=== PATIENT | female | born 2000 | race Caucasian/White ===

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

== ENCOUNTER 2020-12-06 08:00 | Inpatient (IN) ==
[2020-12-09] MEDS ORDERED: CeFAZolin 2,000 MG/120 ML BAG IVPB ONE (09:54)
[2020-12-09] MEDS ORDERED: Metoclopramide 10 MG/2 ML VIAL IVP ONE (09:54)
[2020-12-09] MEDS ORDERED: Oxytocin 20 units/ LR 1000 mL 20 UNIT/1,000 ML BAG IVC ONE (09:54)
[2020-12-09] MEDS ORDERED: Ringers Solution, Lactated 1,000 ML IVC ONE (09:54)
[2020-12-09] MEDS ORDERED: Famotidine 20 MG/2 ML VIAL IVP ONE (09:54)
[2020-12-09] MEDS ORDERED: Oxytocin 20 units/ LR 1000 mL 20 UNIT/1,000 ML BAG IVC SCH ×2 (10:00→16:10)
[2020-12-09] MEDS ORDERED: Ringers Solution, Lactated 1,000 ML IVC SCH (10:00)
[2020-12-09] MEDS ORDERED: *HR* FentaNYL (PF) 100 MCG/2 ML VIAL ONE (10:16)
[2020-12-09] MEDS ORDERED: *HR* Morphine Sulfate/PF 10 MG/10 ML AMPUL ONE (10:16)
[2020-12-09] MEDS ORDERED: Acetaminophen IV 1,000 MG/100 ML BAG IVPB ONE (10:17)
[2020-12-09] MEDS ORDERED: Ondansetron 4 MG/2 ML VIAL ONE (10:17)
[2020-12-09] MEDS ORDERED: *HR* Phenylephrine 10 MG/ML VIAL ONE (10:18)
[2020-12-09 10:41] LABS: Basophils # 0.1 K/mcL (0.0-0.2); Basophils % 0.6 %; Eosinophils # 0.1 K/mcL (0.0-0.6); Eosinophils % 0.7 %; Hematocrit 33.6 % (35.3-44.9); Hemoglobin 9.9 g/dL (11.5-15.4); Immature Granulocytes % 0.9 % (0-4); Lymphocytes # 2.1 K/mcL (0.6-4.6); Mean Corpuscular HGB Conc 29.5 g/dL (31.6-35.5); Mean Corpuscular Hemoglobin 22.8 pg (28.0-33.3); Mean Corpuscular Volume 77.2 fL (83.0-100.0); Mean Platelet Volume 11.3 fL (9.4-12.4); Monocytes # 0.5 K/mcL (0.0-1.3); Monocytes % 5.3 %; Neutrophils # 6.8 K/mcL (1.6-8.9); Platelet Count 180 K/mcL (140-400); Red Blood Count 4.35 M/mcL (3.82-4.97); Red Cell Distribution Width 17.2 % (11.5-14.5); Segmented Neutrophils % 70.5 %; White Blood Count 9.7 K/mcL (4.3-11.1)
[2020-12-09 10:43] LABS: Amphetamine Screen,Urine Negative ng/mL (Cutoff=1000); Barbiturate Screen,Urine Negative ng/mL (Cutoff=200); Benzodiazepines Screen,Urine Negative ng/mL (Cutoff=200); Cannabinoid Screen,Urine Negative ng/mL (Cutoff = 50); Cocaine Screen,Urine Negative ng/mL (Cutoff= 300); Opiate Screen,Urine Negative ng/mL (Cutoff=300); Phencyclidine Screen,Urine Negative ng/mL (Cutoff=25)
[2020-12-09 11:07] LABS: Influenza A PCR Negative (Negative); Influenza B PCR Negative (Negative); Resp. Syncytial Virus PCR Negative (Negative)
[2020-12-09 11:08] LABS: SARS-CoV-2 by PCR (In House) Negative (Negative)
[2020-12-09] MEDS ORDERED: Ketorolac 30 MG/ML VIAL ONE (13:06)
[2020-12-09] MEDS ORDERED: Ondansetron 4 MG/2 ML VIAL IVP PRN (16:10)
[2020-12-09] MEDS ORDERED: Simethicone 80 MG TAB.CHEW PO SCH (16:10)
[2020-12-09] MEDS ORDERED: Acetaminophen 325 MG TABLET PO SCH (16:10)
[2020-12-09] MEDS ORDERED: Metoclopramide 10 MG/2 ML VIAL IVP PRN (16:10)
[2020-12-09] MEDS: Ketorolac 30 MG/ML VIAL IVP SCH (20:29)
[2020-12-10] MEDS: Ketorolac 30 MG/ML VIAL IVP SCH (02:30)
[2020-12-10 04:10] LABS: Basophils % 0.2 %; Eosinophils % 0.2 %; Hematocrit 26.4 % (35.3-44.9); Immature Granulocytes % 0.6 % (0-4); Lymphocytes # 1.7 K/mcL (0.6-4.6); Lymphocytes % 13.5 %; Mean Corpuscular HGB Conc 30.3 g/dL (31.6-35.5); Mean Corpuscular Hemoglobin 23.3 pg (28.0-33.3); Mean Platelet Volume 11.2 fL (9.4-12.4); Monocytes # 0.5 K/mcL (0.0-1.3); Monocytes % 4.1 %; Neutrophils # 10.4 K/mcL (1.6-8.9); Platelet Count 151 K/mcL (140-400); Red Blood Count 3.43 M/mcL (3.82-4.97); Red Cell Distribution Width 17.2 % (11.5-14.5); Segmented Neutrophils % 81.4 %; White Blood Count 12.8 K/mcL (4.3-11.1)
[2020-12-10] MEDS ORDERED: Etonogestrel 68 MG IMPLANT IL ONE (07:14)
[2020-12-10] MEDS ORDERED: Prenatal Vit/FA 1 EACH TABLET PO SCH (09:00)
[2020-12-10] MEDS: Ibuprofen 600 MG TABLET PO SCH ×2 (15:32→20:11)
[2020-12-10 19:33] VITALS: BP 97/56; PULSE 78; TEMP 98.9; O2SAT 98
[2020-12-10] MEDS ORDERED: Lanolin 7 G OINT...G. TP PRN (19:56)
== END 2020-12-10 23:40 | disposition home or self-care (01) | DRG 787 ==
LOC: 1NENULAB 12-09 09:44 → EDSTATUS 12-09 12:30 → 1NENUOBS 12-09 16:09
PROVIDERS: ADMIT Obstetrics & Gynecology; ATTEND Obstetrics & Gynecology